=== PATIENT | female | born 1940 | race Caucasian/White ===

== ENCOUNTER 2017-10-24 09:01 | Outpatient (CLI) | payer MEDICARE ==
[2017-10-24 19:00] LABS: CHOL/HDL RATIO 3.4 (<4.4); CHOLESTEROL 242 mg/dL; HDL CHOLESTEROL 72 mg/dL; LDL CHOLESTEROL,CALCULATED 156 mg/dL; LDL/HDL RATIO 2.2 (<4.4); VLDL CHOLESTEROL 14 mg/dL
== END 2017-10-24 09:02 | disposition home or self-care (01) ==
LOC: LAB.F 09:01
PROVIDERS: ATTEND Nurse Practitioner Family
DX: E78.5 Hyperlipidemia, unspecified (principal)
CPT/HCPCS: 80061; 83721

== ENCOUNTER 2018-04-24 10:04 | Outpatient (CLI) | payer MEDICARE ==
--- NOTE | 2018-04-24 13:16 | DEXA Report ---
Procedure Date: 04/24/2018 Accession Number: [id number] / [id number] Procedure: DEX - Dexa Spine and/or Hip CPT Code: FULL RESULT: EXAM: Dexa Spine and/or Hip DATE: 04/24/2018 10:38 AM CLINICAL HISTORY: ENC FOR SCREENING FOR OSTEOPOROSIS TECHNIQUE: Dual energy x-ray absorptiometry (DXA) was performed on a Light Chaser Animation System. Regions measured are the AP Spine, femoral neck, and if needed forearm. COMPARISON: None. In accordance with the International Society for Clinical Densitometry (ISCD) guidelines, data from previous exams may be reanalyzed using current recommendations and techniques. This is done to allow a more accurate basis for comparison with the current study. FINDINGS: The data for the lumbar spine is as follows: BMD (g/cm/cm) T-SCORE Z-SCORE REGION L1 0.758 -3.1 -1.1 L2 0.782 -3.5 -1.5 L3 0.849 -2.9 -0.9 L4 0.906 -2.4 -0.5 TOTAL 0.834 -2.9 -0.9 NOTE: All evaluable vertebrae are used for classification The data for the hip is as follows: BMD (g/cm/cm) T-SCORE Z-SCORE REGION Neck 0.740 -2.1 0.1 TOTAL 0.821 -1.5 0.6 IMPRESSION: THE WHO CLASSIFICATION BASED ON THE INTERNATIONAL REFERENCE STANDARD IS OSTEOPOROSIS. THE FRACTURE RISK IS HIGH. RECOMMENDATION: Patients with diagnosis of osteoporosis or osteopenia should have regular bone mineral density assessment. For those eligible for Medicare, routine testing is allowed once every 2 years. Testing frequency can be increased for patients who have rapidly progressing disease or for those who are receiving medical therapy to restore bone mass. COMMENT: World Health Organization (WHO) definitions for osteoporosis and osteopenia: NORMAL BMD: T-score at -1.0 or higher, fracture risk is low OSTEOPENIA BMD: T-score between -1.0 and -2.5, fracture risk is increased. OSTEOPOROSIS BMD: T-score at -2.5 or lower, fracture risk is high. National Osteoporosis Foundation recommends: 1. Obtain adequate dietary calcium (at least 1200 mg per day) and vitamin D (400-800 international units per day). 2. Participate, as appropriate, in regular weightbearing and muscle-strengthening exercise. 3. Avoid tobacco use and reduce alcohol and caffeine intake. 4. For more detailed information see the website at www.NOF.org.
== END 2018-04-24 10:05 | disposition home or self-care (01) ==
LOC: DI 10:04
PROVIDERS: ATTEND Physician Assistant Medical
DX: M81.8 Other osteoporosis without current pathological fracture (principal); M85.88 Other specified disorders of bone density and structure, other site
CPT/HCPCS: 77080

== ENCOUNTER 2018-06-21 08:39 | Outpatient (CLI) | payer MEDICARE ==
[2018-06-21 11:25] LABS: ALBUMIN 3.6 g/dL (3.2-5.5); ALBUMIN/GLOBULIN RATIO 1.3 (1.0-2.2); ALKALINE PHOSPHATASE 80 IU/L (42-121); ALT ALANINE AMINOTRANSFERASE 21 IU/L (10-60); AST ASPARTATE AMINOTRANSFERASE 32 IU/L (10-42); BILIRUBIN,TOTAL 0.9 mg/dL (0.2-1.0); BUN - BLOOD UREA NITROGEN 10 mg/dL (6-20); CALCIUM 8.9 mg/dL (8.5-10.3); CARBON DIOXIDE - CO2 28 mmol/L (21-32); CHLORIDE 104 mmol/L (101-111); CHOL/HDL RATIO 2.9 (<4.4); CHOLESTEROL 227 mg/dL; CREATININE 0.7 mg/dL (0.4-1.0); GFR - MDRD 81 (>89); GLUCOSE 94 mg/dL (70-100); HDL CHOLESTEROL 78 mg/dL; LDL CHOLESTEROL,CALCULATED 136 mg/dL; LDL/HDL RATIO 1.7 (<4.4); SODIUM 139 mmol/L (135-145); TOTAL PROTEIN 6.4 g/dL (6.7-8.2); VLDL CHOLESTEROL 13 mg/dL
== END 2018-06-21 08:40 | disposition home or self-care (01) ==
LOC: LAB.F 08:39
PROVIDERS: ATTEND Physician Assistant Medical
DX: E78.5 Hyperlipidemia, unspecified (principal)
CPT/HCPCS: 36415; 80053; 80061; 83721

== ENCOUNTER 2019-03-19 08:24 | Outpatient (CLI) | payer MEDICARE ==
[2019-03-19 10:17] LABS: BASOPHILS # (AUTO) 0.1 10^3/uL (0.0-0.1); BASOPHILS % (AUTO) 1.5 %; EOSINOPHILS # (AUTO) 0.5 10^3/uL (0.0-0.7); EOSINOPHILS % (AUTO) 8.9 %; HGB - HEMOGLOBIN 13.4 g/dL (12.0-16.0); LYMPHOCYTES # (AUTO) 2.1 10^3/uL (1.5-3.5); LYMPHOCYTES % (AUTO) 35.7 %; MEAN CORPUSCULAR HEMOGLOBIN 30.5 pg (27.0-31.0); MEAN CORPUSCULAR HGB CONC 32.7 g/dL (32.0-36.0); MEAN CORPUSCULAR VOLUME 93.2 fL (81.0-99.0); MEAN PLATELET VOLUME 10.2 fL (7.9-10.8); MONOCYTES # (AUTO) 0.6 10^3/uL (0.0-1.0); MONOCYTES % (AUTO) 9.9 %; NEUTROPHILS # (AUTO) 2.6 10^3/uL (1.5-6.6); NEUTROPHILS % (AUTO) 43.7 %; PLT - PLATELET COUNT 239 10^3/uL (130-450); RED CELL DISTRIBUTION WIDTH 13.2 % (12.0-15.0); WHITE BLOOD COUNT 5.9 x10^3/uL (4.8-10.8)
[2019-03-19 10:34] LABS: CHOL/HDL RATIO 3.5 (<4.4); CHOLESTEROL 241 mg/dL; HDL CHOLESTEROL 68 mg/dL; LDL CHOLESTEROL,CALCULATED 156 mg/dL; LDL/HDL RATIO 2.3 (<4.4); VLDL CHOLESTEROL 17 mg/dL
== END 2019-03-19 08:25 | disposition home or self-care (01) ==
LOC: LAB.S 08:24
PROVIDERS: ATTEND Physician Assistant Medical
DX: E78.5 Hyperlipidemia, unspecified (principal); Z51.81 Encounter for therapeutic drug level monitoring; Z79.899 Other long term (current) drug therapy
CPT/HCPCS: 36415; 80061; 83721; 85025

== ENCOUNTER 2019-06-09 00:24 | Outpatient (CLI) | payer MEDICARE | END 2019-06-09 00:25 | disposition critical access hospital (66) | LOC: EMS 00:24 | PROVIDERS: ATTEND Surgery | DX: R10.31 Right lower quadrant pain (principal); R11.2 Nausea with vomiting, unspecified | CPT/HCPCS: A0425; A0429 ==

== ENCOUNTER 2019-06-09 00:45 | Inpatient (IN) | payer MEDICARE ==
[2019-06-09] MEDS ORDERED: MORPHINE 10 MG/ML VIAL IVP STA (00:54)
[2019-06-09] MEDS ORDERED: ONDANSETRON 4 MG/2 ML VIAL IVP STA (00:54)
[2019-06-09 01:10] LABS: BASOPHILS # (AUTO) 0.1 10^3/uL (0.0-0.1); BASOPHILS % (AUTO) 1.4 %; EOSINOPHILS # (AUTO) 0.7 10^3/uL (0.0-0.7); EOSINOPHILS % (AUTO) 6.4 %; HGB - HEMOGLOBIN 13.1 g/dL (12.0-16.0); LYMPHOCYTES # (AUTO) 2.6 10^3/uL (1.5-3.5); LYMPHOCYTES % (AUTO) 25.4 %; MEAN CORPUSCULAR HEMOGLOBIN 30.9 pg (27.0-31.0); MEAN CORPUSCULAR HGB CONC 33.8 g/dL (32.0-36.0); MEAN CORPUSCULAR VOLUME 91.5 fL (81.0-99.0); MEAN PLATELET VOLUME 9.6 fL (7.9-10.8); MONOCYTES # (AUTO) 0.7 10^3/uL (0.0-1.0); NEUTROPHILS # (AUTO) 6.1 10^3/uL (1.5-6.6); NEUTROPHILS % (AUTO) 59.3 %; PLT - PLATELET COUNT 262 10^3/uL (130-450); RED BLOOD COUNT 4.24 10^6/uL (4.20-5.40); RED CELL DISTRIBUTION WIDTH 13.7 % (12.0-15.0); WHITE BLOOD COUNT 10.3 x10^3/uL (4.8-10.8)
[2019-06-09] MEDS ORDERED: IOVERSOL 320 100 ML VIAL IVP ONE ×2 (01:20→01:47)
[2019-06-09 01:22] LABS: ALBUMIN/GLOBULIN RATIO 1.3 (1.0-2.2); BILIRUBIN,TOTAL 0.7 mg/dL (0.2-1.0); CALCIUM 9.5 mg/dL (8.5-10.3); CREATININE 0.8 mg/dL (0.4-1.0); TOTAL PROTEIN 7.2 g/dL (6.7-8.2)
--- NOTE | 2019-06-09 01:22 | ED Physician Documentation ---
PD HPI ABD PAIN - Stated complaint Stated Complaint: ABD PAIN - Chief complaint Chief Complaint: Abd Pain - History obtained from History obtained from: Patient - History of Present Illness Timing - onset: How many hours ago (6) Timing - duration: Hours (6) Timing - details: Abrupt onset Pain level max: 8 Pain level now: 6 Quality: Aching, Sharp, Pain Location: RLQ Radiation: No: Chest, , Lower back, Left flank, Left shoulder, Right flank, Right shoulder, Upper back Improved by: Laying still Worsened by: Moving, Palpation Associated symptoms: Nausea, Vomiting, Diarrhea. No: Fever, Hematemesis, Constipation, Melena, Hematochezia, Dysuria, Hematuria Similar symptoms before: Has not had sx before Recently seen: Not recently seen Review of Systems Ten Systems: 10 systems reviewed and negative Constitutional: denies: Fever, Chills Respiratory: denies: Cough : denies: Dysuria, Frequency, Hesitancy, Incontinent Skin: denies: Rash Musculoskeletal: denies: Neck pain, Back pain Neurologic: denies: Headache PD PAST MEDICAL HISTORY - Past Medical History Past Medical History: No Cardiovascular: None Respiratory: None Neuro: None Endocrine/Autoimmune: None GI: None RELAY DISPATCHER: None : None HEENT: None Psych: None Musculoskeletal: None Derm: None - Past Surgical History Past Surgical History: Yes General: Other HEENT: Tonsil/Adenoidectomy - Allergies Allergies/Adverse Reactions: Allergies Allergy/AdvReac Type Severity Reaction Status Date / Time No Known Drug Allergies Allergy Verified 06/09/19 00:54 - Social History Does the pt smoke?: No Smoking Status: Never smoker Does the pt drink ETOH?: No Does the pt have substance abuse?: No - Immunizations Immunizations are current?: Yes - POLST Patient has POLST: No PD ED PE NORMAL - Vitals Vital signs reviewed: Yes - General General: Alert and oriented X 3, No acute distress, Well developed/nourished - HEENT HEENT: PERRL, Moist mucous membranes - Neck Neck: Supple, no meningeal sign - Cardiac Cardiac: RRR, Strong equal pulses - Respiratory Respiratory: No respiratory distress, Clear bilaterally - Abdomen Abdomen: Soft, Non distended, Other (Tender to palpation right lower quadrant near McBurney's point. No peritoneal signs.) - Back Back: No CVA TTP, No spinal TTP - Derm Derm: Warm and dry - Extremities Extremities: No edema - Neuro Neuro: Alert and oriented X 3 - Psych Psych: Normal mood, Normal affect Results - Vitals Vitals: Vital Signs - 24 hr 06/09/19 06/09/19 06/09/19 00:52 01:13 02:08 Temperature 36.6 C Heart Rate 86 66 67 Respiratory 19 17 16 Rate Blood Pressure 114/89 H 143/71 H 141/68 H O2 Saturation 98 98 96 06/09/19 02:36 Temperature 36.3 C L Heart Rate 74 Respiratory 16 Rate Blood Pressure 126/65 O2 Saturation 95 Oxygen O2 Source Room air - Labs Labs: Laboratory Tests 06/09/19 06/09/19 00:40 00:40 WBC 10.3 RBC 4.24 Hgb 13.1 Hct 38.8 MCV 91.5 MCH 30.9 MCHC 33.8 RDW 13.7 Plt Count 262 MPV 9.6 Neut # (Auto) 6.1 Lymph # (Auto) 2.6 Sutter # (Auto) 0.7 Eos # (Auto) 0.7 Baso # (Auto) 0.1 Absolute Nucleated RBC 0.00 Nucleated RBC % 0.0 Sodium 140 Potassium 3.9 Chloride 102 Carbon Dioxide 28 Anion Gap 10.0 BUN 13 Creatinine 0.8 Estimated GFR (MDRD) 69 L Glucose 136 H Calcium 9.5 Total Bilirubin 0.7 AST 31 ALT 20 Alkaline Phosphatase 87 Total Protein 7.2 Albumin 4.0 Globulin 3.2 Albumin/Globulin Ratio 1.3 Lipase 29 - Rads (name of study) CT abd/pelvis Radiology: Prelim report reviewed, EMP read contemporaneously, See rad report (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 Ileum proximal to this appears fluid- filled and mildly distended and this could reflect an early/partial small bowel obstruction. No mesenteric edema or wall thickening to suggest bowel compromise. 2. Left breast posterior nearly 2 cm irregular asymmetric nodule. Breast cancer needs be excluded with dedicated workup at a breast center. 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 Discussed the case with Dr. Berger, general surgeon who will consult in the morning. Discussed the case with Dr. Chiang, hospitalist who accepts. Pain well controlled. No vomiting. Nausea improved. IV fluids given. Patient was also counseled regarding the breast mass on CT scan and the need for follow-up This document was made in part using voice recognition software. While efforts are made to proofread this document, sound alike and grammatical errors may occur. Departure - Departure Disposition: ED Place in Observation Clinical Impression: Small bowel obstruction, Cecal volvulus, Left breast mass Condition: Stable
[2019-06-09] MEDS ORDERED: SODIUM CHLORIDE 0.9% 1,000 ML IV ONE (02:13)
--- NOTE | 2019-06-09 02:30 | CT Report ---
Reason: RLQ pain, vomiting Procedure Date: 06/09/2019 Accession Number: [id number] / [id number] Procedure: CT - Abdomen/Pelvis W CPT Code: FULL RESULT: EXAM: CT ABDOMEN AND PELVIS EXAM DATE: 06/09/2019 01:46 AM. CLINICAL HISTORY: Right lower quadrant pain, vomiting. COMPARISONS: None. TECHNIQUE: Routine helical CT imaging was performed through the abdomen and pelvis. IV contrast: Yes . Enteric contrast: No . Reconstructions: Coronal and sagittal. In accordance with CT protocol optimization, one or more of the following dose reduction techniques were utilized for this exam: automated exposure control, adjustment of mA and/or KV based on patient size, or use of iterative reconstructive technique. FINDINGS: Lung Bases: Unremarkable. Liver: Small right liver cyst or hemangioma. No suspicious masses. Gallbladder/Bile Ducts: Unremarkable. Spleen: Unremarkable. Pancreas: Unremarkable. Adrenal Glands: Unremarkable. Kidneys: Left renal cyst. No suspicious masses or hydronephrosis. Peritoneal Cavity/Bowel: Stool-filled moderately distended cecum is flipped up pointing cranially in the right upper quadrant. Best seen on coronal images 17 through 22, there is a slight twisting of the distal/terminal ileum a few centimeters proximal to the cecum. The ileum proximal to this is mildly distended with fluid. No bowel thickening or mesenteric edema. Pelvic Organs: Bladder, uterus, and adnexa appear unremarkable. Vasculature: No aneurysms or other significant abnormality. Bones: No significant abnormality. Other: At the posterior aspect of the left breast below the nipple line, there is an regular asymmetric density, measuring approximately 19 x 13 mm on axial image 10, 17 mm deep to the skin surface at about 7 o'clock. IMPRESSION: 1. 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 Ileum proximal to this appears fluid-filled and mildly distended and this could reflect an early/partial small bowel obstruction. No mesenteric edema or wall thickening to suggest bowel compromise. 2. Left breast posterior nearly 2 cm irregular asymmetric nodule. Breast cancer needs be excluded with dedicated workup at a breast center. [facility] The call report notification system was initiated by Dr. Ruslan Ramos at 02:24 AM on 06/09/2019. The above call report findings were discussed with Eliseo Mckenzie by Dr. Ruslan Ramos at 02:28 AM on 06/09/2019.
[2019-06-09] MEDS ORDERED: MORPHINE 2 MG/ML CARPUJECT IVP PRN (02:46)
[2019-06-09] MEDS ORDERED: ONDANSETRON 4 MG/2 ML VIAL IVP PRN (02:46)
[2019-06-09] MEDS ORDERED: SODIUM CHLORIDE FLUSH 0.9% 10 ML SYRINGE IVP PRN (02:46)
[2019-06-09] MEDS ORDERED: ACETAMINOPHEN 325 MG TABLET PO PRN (02:46)
[2019-06-09] MEDS ORDERED: LACTATED RINGERS 1,000 ML IV SCH (03:00)
--- NOTE | 2019-06-09 03:12 | HISTORY & PHYSICAL EXAMINATION ---
Chief Complaint - Chief Complaint Chief Complaint: Abdominal pain History of Present Illness - Admitted From Admitted From:: Home - History Obtained From Records Reviewed: Yes History obtained from: Patient, ER Physician - History of Present Illness HPI Comment/Other: This is a 78 year old female with no significant past medical history who presents this morning from complaining of abdominal pain that began after dinner last night. She reports doing well up until that time. She developed pain in her right lower quadrant and she was concerned she may have appendicitis. She measured her temperature which was normal. She felt nauseous and had one episode of emesis. She reports she is not passing gas. She denies fevers, dyspnea, chest pain. She does report chills that began on her way to the ER. She reports no prior abdominal surgeries and no history of obstruction in the past. She has never had a colonoscopy. In the ER, she was hemodynamically stable. Her labs were unremarkable. A CT of the abdomen/pelvis was performed which was concerning for a cecal volvulus and early small bowel obstruction. She received IV Morphine with improvement in her pain. She will be admitted for further management. History - Past Medical History Cardiovascular: reports: None Respiratory: reports: None Neuro: reports: None Endocrine/Autoimmune: reports: None GI: reports: None CEMENTER HAND: reports: None : reports: None HEENT: reports: None Psych: reports: None Musculoskeletal: reports: None Derm: reports: None MRSA Hx?: No - Past Surgical History General: reports: Other (Cataractws) HEENT: reports: Tonsil/Adenoidectomy - Family & Social History Family History Comment/Other: Her mother from heart failure. Her father had prostate cancer. Living arrangement: At home Social History Notes: She lives on [address] with her spouse. She does not smoke. Drinks a glass of wine at times. - Substance History Use: Uses substance without health or social issues: NONE - POLST Patient has POLST: No Meds/Allgy - Allergies Allergies/Adverse Reactions: Allergies Allergy/AdvReac Type Severity Reaction Status Date / Time No Known Drug Allergies Allergy Verified 06/09/19 00:54 Review of Systems - Constitutional Constitutional: reports: Chills. denies: Fatigue, Fever, Poor appetite - Cardiovascular Cariovascular: denies: Chest pain, Exertional dyspnea, Decr. exercise tolerance - Respiratory Respiratory: denies: Cough, SOB at rest, SOB with exertion - Gastrointestinal Gastrointestinal: reports: Abdominal pain, Change in bowel habits, Nausea, Vomiting. denies: Abdominal distention, Diarrhea, Black stools, Bloody stools - Genitourinary Genitourinary: denies: Dysuria, Frequency, Urgency - Musculoskeletal Musculoskeletal: denies: Muscle weakness - Integumentary Integumentary: denies: Rash - Neurological Neurological: denies: General weakness, Focal weakness - All Other Systems All Other Systems: reports: Reviewed and negative Prior Level of Functionality: Independent with ADL's. Exam - Vital Signs Reviewed Vital Signs: Yes Vital Signs: Vital Signs x48h Temp Pulse Resp BP Pulse Ox 06/09/19 02:36 36.3 C L 74 16 126/65 95 06/09/19 02:08 67 16 141/68 H 96 06/09/19 01:13 66 17 143/71 H 98 06/09/19 00:52 36.6 C 86 19 114/89 H 98 - Physical Exam General Appearance: positive: No acute distress, Alert Eyes Bilateral: positive: Normal inspection ENT: positive: ENT inspection nml Neck: positive: Nml inspection Respiratory: positive: No respiratory distress, Breath sounds nml. negative: Wheezes, Rales, Rhonchi Cardiovascular: positive: Regular rate & rhythm, No murmur. negative: Tachycardia, Bradycardia, Systolic murmur, Diastolic murmur Abdomen: positive: Tenderness (Right lower quadrant), Abnml bowel sounds (Hyperactive). negative: Non-tender, Guarding, Rebound Skin: positive: Color nml, No rash, Warm, Dry Extremities: positive: Non-tender, Full ROM, No pedal edema Neurologic/Psychiatric: positive: Oriented x3, Motor nml. negative: Disoriented to person, Disoriented to place, Disoriented to time Conclusion/Plan - Problem List (1) Cecal volvulus Conclusion/Plan: Evident on CT of the abdomen/pelvis. Presented with right lower quadrant pain along with nausea/vomiting. Denies nausea/vomiting at this time. - Morphine IV PRN - IV hydration - Zofran PRN - NPO - Check lactic - General Surgery consult for potential surgical intervention (2) Small bowel obstruction Conclusion/Plan: Secondary to cecal volvulus. Presented with abdominal pain, nausea, vomiting. No prior history of obstruction. - Morphine PRN - NPO - Hold off on NG tube placement unless she has further episodes of emesis or nausea - General Surgery consult (3) Left breast mass Conclusion/Plan: Evident on CT of the abdomen/pelvis. Reports negative mammograms in the past. Last one being about 5 years ago. 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 General Surgery consult. - DVT/VTE - Prophylaxis VTE/DVT Device ordered at admit?: Yes VTE/DVT Prophylaxis med ordered at admit?: Yes
[2019-06-09 03:38] LABS: BILIRUBIN,URINE NEGATIVE (NEGATIVE); CLARITY,URINE CLEAR (CLEAR); GLUCOSE, URINE (UA) NEGATIVE (NEGATIVE); KETONES,URINE (UA) NEGATIVE (NEGATIVE); LEUKOCYTE ESTERASE, URINE TRACE (NEGATIVE); NITRITE,URINE NEGATIVE (NEGATIVE); OCCULT BLOOD,URINE NEGATIVE (NEGATIVE); PH,URINE 8.5 PH (5.0-7.5); PROTEIN,URINE NEGATIVE (NEGATIVE); UROBILINOGEN,URINE 0.2 (NORMAL) E.U./dL (NORMAL)
[2019-06-09 03:47] LABS: BACTERIA,URINE Rare /HPF (None Seen); RBC,URINE None Seen /HPF (0-5); SQUAMOUS EPITHELIAL CELL,UR MOD Squamous (<= Few)
[2019-06-09 05:37] LABS: BASOPHILS # (AUTO) 0.1 10^3/uL (0.0-0.1); EOSINOPHILS # (AUTO) 0.1 10^3/uL (0.0-0.7); EOSINOPHILS % (AUTO) 0.8 %; HGB - HEMOGLOBIN 12.1 g/dL (12.0-16.0); LYMPHOCYTES # (AUTO) 1.4 10^3/uL (1.5-3.5); LYMPHOCYTES % (AUTO) 16.8 %; MEAN CORPUSCULAR HGB CONC 32.4 g/dL (32.0-36.0); MEAN CORPUSCULAR VOLUME 92.6 fL (81.0-99.0); MEAN PLATELET VOLUME 9.7 fL (7.9-10.8); MONOCYTES # (AUTO) 0.4 10^3/uL (0.0-1.0); MONOCYTES % (AUTO) 5.1 %; NEUTROPHILS # (AUTO) 6.3 10^3/uL (1.5-6.6); NEUTROPHILS % (AUTO) 75.9 %; PLT - PLATELET COUNT 226 10^3/uL (130-450); RED BLOOD COUNT 4.03 10^6/uL (4.20-5.40); RED CELL DISTRIBUTION WIDTH 13.8 % (12.0-15.0); WHITE BLOOD COUNT 8.3 x10^3/uL (4.8-10.8)
[2019-06-09 05:51] LABS: CALCIUM 8.9 mg/dL (8.5-10.3); CREATININE 0.7 mg/dL (0.4-1.0); MAGNESIUM 2.3 mg/dL (1.7-2.8); PHOSPHORUS 4.7 mg/dL (2.5-4.6)
[2019-06-09] MEDS ORDERED: SODIUM CHLORIDE FLUSH 0.9% 10 ML SYRINGE IVP SCH (09:00)
[2019-06-09] MEDS: HEPARIN 5,000 UNIT/ML VIAL SUBQ SCH ×2 (09:11→09:14)
--- NOTE | 2019-06-09 10:23 | XRAY Report ---
Reason: partial SBO Procedure Date: 06/09/2019 Accession Number: [id number] / [id number] Procedure: XR - Abdomen 2 View X-Ray CPT Code: 21569 FULL RESULT: EXAM: ABDOMEN RADIOGRAPHY EXAM DATE: 06/09/2019 09:52 AM HISTORY: Partial SBO. COMPARISON: ABDOMEN/PELVIS W/ 06/09/2019 1:37 AM TECHNIQUE: AP and Upright two view exam. FINDINGS: Nonspecific bowel gas pattern noted. No definite significant abnormal distention of bowel loops. There is only mild prominence of gas in small bowel loops. No air-fluid levels. Small amt of stool and gas in the colon. No free air No concerning calcification. Residual contrast seen in the urinary bladder. Unremarkable skeleton. Other: None. IMPRESSION: Mildly prominent gas in small bowel loops but within normal limits. No clear evidence of obstructive pattern or other significant abnormality.
--- NOTE | 2019-06-09 13:22 | Discharge Plan ---
Discharge Plan Problem Reviewed?: Yes Disposition: Home, Self Care Condition: Stable Diet: Soft Activity Restrictions: Activity as Tolerated Shower Restrictions: No (fall precaution) Health Concerns: Cecal volvulus, and left breast mass Plan of Treatment: your abdominal pain was resolved, you tolerate the diet, you have no more nausea, vomiting, you passed gas. you reported you had bowel movement on last night before admission. Your Xray of abdomen was unremarkable now. For your cecal volvulus, please followup surgeon Dr. Sharma in one to two weeks as out-pt. For your left breast mass as shown in the CT of abdomen, please followup OBGN in one to two weeks as out-pt. Care Goals: stabilization and improvement of your medical condition Assessment: assessment as the above. Additional Instructions or Follow Up instructions: you may followup your PCP in one week, followup surgeon Dr. Mares and OBGN in one to two weeks as out-pt. Should your symptoms return or worsen, you may present ER or call 911 for help. No Smoking: If you smoke, Please STOP! Call for help. Follow-up with: Corie Martin PA-C [Primary Care Provider] -
--- NOTE | 2019-06-09 13:37 | DISCHARGE SUMMARY ---
"Discharge Summary Discharge Date: 06/09/19 Discharging Provider: MUNOZ Primary Care Provider: Dr. Corie Martin Condition at Discharge: Stable Discharge Disposition: 01 Home, Self Care Discharge Facility Name: home - DIAGNOSES Admission Diagnoses: (1) Cecal volvulus (2) Small bowel obstruction (3) Left breast mass Discharge Diagnoses with Status of Each Condition: (1) Cecal volvulus resolved. pt has no more abdominal pain, pt tolerate diet, pt passed gas. pt report she had a bowel movement just before the night she was admitted. Xray of abdomen reveals no clear evidence of obstructive patterns or other significant abnormality. (2) Small bowel obstruction resolved as above (3) Left breast mass stable. pt report she had this cyst for many years. - HPI History of Present Illness: refer from Dr. Chiang's HPI on 06/09/19 This is a 78 year old female with no significant past medical history who presents this morning from complaining of abdominal pain that began after dinner last night. She reports doing well up until that time. She developed pain in her right lower quadrant and she was concerned she may have appendicitis. She measured her temperature which was normal. She felt nauseous and had one episode of emesis. She reports she is not passing gas. She denies fevers, dyspnea, chest pain. She does report chills that began on her way to the ER. She reports no prior abdominal surgeries and no history of obstruction in the past. She has never had a colonoscopy. In the ER, she was hemodynamically stable. Her labs were unremarkable. A CT of the abdomen/pelvis was performed which was concerning for a cecal volvulus and early small bowel obstruction. She received IV Morphine with improvement in her pain. She will be admitted for further management. - CONSULTS | PROCEDURES Consultations: Dr. Sharma Procedures: no procedure needed - HOSPITAL COURSE Hospital Course: pt was admitted for abdominal pain. pt was found in CT of abdomen concerning for a cecal volvulus and early small bowel obstruction. After NPO, ambulation, pt has no more abdominal pain, pt tolerate the diet, and pt passed gas. pt had a bowel movement just before she was admitted in the night. Xray of abdomen reveals no clear evidence of obstructive patterns or other significant abn ormality. Surgeon was consulted but he requested d/c consult because he stated pt was improved. Dr. Sharma asked pt followup him in one to two weeks to discuss possible surgery as out-pt. The message was given to pt. pt report she had left breast cyst for many years, she knew this condition. The detail hospital course as the below: 1) Cecal volvulus resolved. pt has no more abdominal pain, pt tolerate diet, pt passed gas. pt report she had a bowel movement just before the night she was admitted. Xray of abdomen reveals no clear evidence of obstructive patterns or other significant abnormality. (2) Small bowel obstruction resolved as above (3) Left breast mass stable. pt report she had this cyst for many years. - ALLERGIES Allergies/Adverse Reactions: Allergies Allergy/AdvReac Type Severity Reaction Status Date / Time No Known Drug Allergies Allergy Verified 06/09/19 00:54 - MEDICATIONS Home Medications: Ambulatory Orders Medication Instructions Recorded Confirmed Cholecalciferol [Vitamin D3] 5,000 unit PO DAILY 06/09/19 06/09/19 Lactobacillus Acidophilus 1 each PO DAILY 06/09/19 06/09/19 [Probiotic Acidophilus] Multivitamin [Multiple Vitamins] 1 each PO DAILY 06/09/19 06/09/19 - PHYSICAL EXAM AT DISCHARGE General Appearance: positive: No acute distress, Alert. negative: Lethargic Eyes Bilateral: positive: Normal inspection, PERRL, No lid inflammation, Conjunctivae nml ENT: positive: ENT inspection nml, Pharynx nml, No signs of dehydration. negative: Purulent nasal drainage, Pharyngeal erythema, Oral lesions Neck: positive: Nml inspection, Thyroid nml, No JVD, Trachea midline. negative: Thyromegaly, Lymphadenopathy (R), Lymphadenopathy (L), Stiff neck, Swelling/bruising, Tracheal deviation Respiratory: positive: Chest non-tender, No respiratory distress, Breath sounds nml. negative: Wheezes, Rales, Rhonchi Cardiovascular: positive: Regular rate & rhythm, No murmur, No gallop. negative: Irregularly irregular, Extrasystoles, Tachycardia, Bradycardia, JVD present, Systolic murmur, Diastolic murmur Peripheral Pulses: positive: 2+ Abdomen: positive: Non-tender, No organomegaly, Nml bowel sounds, No distention. negative: Tenderness, Guarding, Rebound Back: positive: Nml inspection. negative: CVA tenderness (R), CVA tenderness (L) Skin: positive: Color nml, No rash, Warm, Dry. negative: Cyanosis, Diaphoresis, Pallor Extremities: positive: Non-tender, Full ROM, Nml appearance. negative: Calf tenderness, Joint swelling, Gerardo's sign/cords Neurologic/Psychiatric: positive: Oriented x3, Motor nml, Sensation nml, Mood/affect nml. negative: Weakness, Sensory loss, Facial droop, Slurred/abnml speech, Depressed mood/affect - LABS Result Diagrams: 06/09/19 05:30 06/09/19 05:30 - FOLLOW UP Follow Up: your abdominal pain was resolved, you tolerate the diet, you have no more nausea, vomiting, you passed gas. you reported you had bowel movement on last night before admission. Your Xray of abdomen was unremarkable now. For your cecal volvulus, please followup surgeon Dr. Sharma in one to two weeks as out-pt. For your left breast mass as shown in the CT of abdomen, please followup OBGN in one to two weeks as out-pt. you may followup your PCP in one week, followup surgeon Dr. Mares and OBGN in one to two weeks as out-pt. Should your symptoms return or worsen, you may present ER or call 911 for help. - TIME SPENT Time Spent in Discharge (Minutes): 55"
[2019-06-09 14:05] VITALS: BP 127/61
== END 2019-06-09 14:18 | disposition home or self-care (01) | DRG 390 ==
LOC: EDUNIT# → ED 00:45 → OBSVTOIN 02:46 → MS2 02:46
PROVIDERS: ADMIT Internal Medicine; ATTEND Nurse Practitioner Gerontology
DX: K56.2 Volvulus (principal); K56.600 Partial intestinal obstruction, unspecified as to cause; N63.0 Unspecified lump in unspecified breast
CPT/HCPCS: 36415; 74019; 74177; 80048; 80053; 81001; 83605; 83690; 83735; 84100; 85025; 96374; 99285; J7120; Q9967; 81003; 87086

== ENCOUNTER 2019-07-11 13:31 | Outpatient (CLI) | payer MEDICARE ==
--- NOTE | 2019-07-11 15:39 | Mammography Report ---
Reason: LT BREAST MASS FOUND ON CT Procedure Date: 07/11/2019 Accession Number: [id number] / [id number] Procedure: DALLIN - Diagnostic Dig Bilat CPT Code: FULL RESULT: EXAM: Diagnostic Dig Bilat, Breast Unilateral Limited DATE: 07/11/2019 2:46 PM CLINICAL HISTORY: CT scan abdomen and pelvis 06/09/2019 demonstrated left breast mass. COMPARISON: CT scan abdomen and pelvis 06/09/2019 TECHNIQUE: (B) - Bilateral CC and MLO views were obtained. PARENCHYMAL PATTERN: (A) - The breasts demonstrate scattered fibroglandular densities bilaterally. FINDINGS: Right breast: There are no suspicious masses, calcifications, or areas of distortion. Left breast: There is a posterior left breast mass 6:00 position 7 cm from the nipple. LEFT BREAST ULTRASOUND: TECHNIQUE: Real-time scanning by the timekeeper supervisor with saved static images reviewed. FINDINGS: Corresponding to the mammographic abnormality is a 1.6 x 1 x 2.1 cm ill-defined hypoechoic minimally vascular mass against the chest wall 6:00 position, approximately 4 cm from the nipple. IMPRESSION: Highly suggestive for malignancy. BI-RADS category 5. Ultrasound-guided core biopsy left breast mass is suggested. Negative right breast. RECOMMENDATION: (BIOPSY) - ultrasound core biopsy left breast. BI-RADS CATEGORY: (5) - Highly suggestive for malignancy. Results called to Corie Martin 3:30 PM 07/11/2019. STANDARD QUALIFYING STATEMENTS: This examination was not reviewed with the aid of Computer-Aided Detection (CAD). 2. A negative or benign imaging report should not preclude biopsy if clinically suspicious findings are present. 3. Dense breasts may obscure an underlying neoplasm. 4. This examination was reviewed with the aid of 3D breast imaging (tomosynthesis).
== END 2019-07-11 13:32 | disposition home or self-care (01) ==
LOC: DI 13:31
PROVIDERS: ATTEND Physician Assistant Medical
DX: N63.25 Unspecified lump in the left breast, overlapping quadrants (principal)
CPT/HCPCS: 76642; 77066

== ENCOUNTER 2019-07-19 08:39 | Day surgery (SDC) | payer MEDICARE ==
[2019-07-19] MEDS ORDERED: fentaNYL 250 MCG/5 ML VIAL IVP ONE (08:40)
[2019-07-19] MEDS ORDERED: MIDAZOLAM 2 MG/2 ML VIAL IVP ONE (08:40)
[2019-07-19] MEDS ORDERED: LACTATED RINGERS 1,000 ML IV ONE (08:50)
[2019-07-19 11:54] VITALS: BP 109/72
== END 2019-07-19 08:40 | disposition home or self-care (01) ==
LOC: SDS 08:39
PROVIDERS: ATTEND Surgery
PROC: 0DBN8ZZ Excision of Sigmoid Colon, Via Natural or Artificial Opening Endoscopic (ICD-10-PCS; principal; 2019-07-19 10:00)
DX: D12.5 Benign neoplasm of sigmoid colon (principal); E78.5 Hyperlipidemia, unspecified
CPT/HCPCS: 45385; J3010; J7120

== ENCOUNTER 2019-07-24 08:19 | Outpatient (CLI) | payer MEDICARE ==
[2019-07-24] MEDS ORDERED: BUFFERED LIDOCAINE 10 ML SYRINGE ONE (11:01)
[2019-07-24] MEDS ORDERED: BUPIVACAINE 0.25%-EPI 1:200000 PF 30 ML VIAL SUBQ ONE (15:41)
[2019-07-24] MEDS ORDERED: BUFFERED LIDOCAINE 10 ML SYRINGE IU ONE (15:41)
--- NOTE | 2019-07-24 16:24 | Ultrasound Report ---
Reason: ABNORMAL MAMMO Procedure Date: 07/24/2019 Accession Number: [id number] / [id number] Procedure: US - Biopsy Breast Core CPT Code: Final Report FULL RESULT: PROCEDURE: Ultrasound-guided needle biopsy left breast mass. CLINICAL DATA: Targeted mass measuring 1.7 x 1.0 x 0.8 cm with irregular margins in the 6 o'clock axis of the left breast. Informed consent was obtained. Using standard aseptic technique, both 1% buffered lidocaine and Sensorcaine were injected into the left breast for local anesthesia. A small sherlyn was made in the skin with a #11 blade. A 12-gauge [employer] vacuum-assisted device was used to obtain 3 specimens. A specialized biopsy marker clip was placed into the biopsy cavity under ultrasound guidance. The patient was taken to separate mammography machine and a two-view digital mammography was performed to verify the clip placement and any complications. Immediate follow-up mammography images could not be obtained immediately following the biopsy due to technical reasons. The patient elected to return for post clip placement imaging with plan for this to be performed the same day. Ultrasound images document placement of the marker within the center of the lesion with permanent ultrasound image saved for the archive. The wound was dressed and ice applied. The patient was observed for approximately 15 minutes, then was discharged from diagnostic imaging Department in good condition following instructions on wound care and obtaining biopsy results. The patient is scheduled to receive the biopsy results from the referring physician. The tissue was sent for histologic analysis. IMPRESSION: Ultrasound-guided biopsy of the left breast. AN ADDENDUM WILL BE MADE TO THIS REPORT WHEN PATHOLOGY IS REVIEWED TO ESTABLISH CONCORDANCE.
== END 2019-07-24 08:20 | disposition home or self-care (01) ==
LOC: DI 08:19
PROVIDERS: ATTEND Physician Assistant Medical
DX: C50.912 Malignant neoplasm of unspecified site of left female breast (principal); Z17.0 Estrogen receptor positive status [ER+]
CPT/HCPCS: 19083

== ENCOUNTER 2019-08-08 12:17 | Outpatient (CLI) | payer MEDICARE ==
--- NOTE | 2019-08-08 15:30 | XRAY Report ---
Reason: HX OF COLONIC PALYPS, ADEMATOUS Procedure Date: 08/08/2019 Accession Number: [id number] / [id number] Procedure: FL - Barium Enema w/Air CPT Code: Final Report FULL RESULT: EXAM: BARIUM ENEMA EXAM DATE: 08/08/2019 02:56 PM. CLINICAL HISTORY: History of colonic polyps, edematous. COMPARISONS: ABDOMEN 2 VIEW 06/09/2019 9:45 AM. TECHNIQUE: Routine double contrast barium enema. Fluoroscopy Time: 1 minute 37 seconds. Number of Images: 126. FINDINGS: Study is somewhat limited by suboptimal emptying of the barium colon prior to double contrast distention. For the region of the cecum, the study is felt to be overall diagnostic for masses within the limitations inherent to the technique. Morphology: Normal distention and anatomy. Colon adequately visualized from the rectum to the cecum. Mucosa: Normal. No diverticula, masses, or strictures. No filling defects evident. Terminal Ileum: Mild ileocecal reflux present. No mucosal abnormalities evident. Other: None. IMPRESSION: No mass or fixed stricture is detected. RADIA
[2019-08-09] MEDS ORDERED: DIATR MEGLU/DIATRIZOATE SODIUM 120 ML BOTTLE PO ONE (08:08)
[2019-08-09] MEDS ORDERED: BARIUM SULFATE 1,900 ML BOTTLE RC ONE (08:08)
== END 2019-08-08 12:18 | disposition home or self-care (01) ==
LOC: DI 12:17
PROVIDERS: ATTEND Surgery
DX: Z86.010 Personal history of colon polyps (principal)
CPT/HCPCS: 74280

== ENCOUNTER 2019-09-18 14:10 | Outpatient (CLI) | payer MEDICARE ==
[2019-09-18] MEDS ORDERED: GADOBUTROL 7.5 MMOL/7.5 ML VIAL ONE (14:20)
[2019-09-18] MEDS ORDERED: GADOBUTROL 7.5 MMOL/7.5 ML VIAL IVP ONE (15:26)
--- NOTE | 2019-09-26 09:20 | MRI Report ---
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 Pretreatment MRI requested to assess for extent of disease. TECHNIQUE: BREAST COIL: COMPARISON: None FINDINGS: BACKGROUND TISSUE: Scattered fibroglandular tissue. BACKGROUND ENHANCEMENT: Minimal. RIGHT BREAST: There is no focus of mass or nonmass enhancement, distortion or skin thickening. There are no pathologically enlarged axillary or internal mammary lymph nodes. LEFT BREAST: The biopsy-proven malignant mass in the superficial 6:00 position is confirmed measuring approximately 16 x by 20 x 12 mm. There are features suspicious for direct invasion into the overlying dermis. There are no additional foci of mass or nonmass enhancement to suggest multifocal or multicentric disease. There are no pathologically enlarged axillary or internal mammary lymph nodes. IMPRESSION: RIGHT BREAST: No evidence for malignancy. (Negative. BiRads 1) LEFT BREAST: The biopsy proven malignancy in the 6:00 posterior position is confirmed measuring 2 cm in maximal dimension. Suspect direct invasion into the overlying dermis. No MR evidence for multifocal, multicentric or regional metastatic disease. (Known Malignancy. BiRads 6) COMMENT: The literature indicates that a negative and dynamic breast MRI has a high sensitivity and specificity for the detection of invasive carcinoma (to a threshold of 5 mm). MRI is not reliably sensitive for detecting ductal carcinoma in situ or large invasive neoplasms with only minimal enhancement (normal-appearing lymph nodes may contain microscopic tumor.
== END 2019-09-18 14:11 | disposition home or self-care (01) ==
LOC: DI 14:10
PROVIDERS: ATTEND Physician Assistant Medical
DX: C50.812 Malignant neoplasm of overlapping sites of left female breast (principal)
CPT/HCPCS: 77049; A9585

== ENCOUNTER 2019-10-08 08:25 | Day surgery (SDC) | payer MEDICARE ==
[~2019-10-08 08:25] MED LIST: CEFAZOLIN SODIUM IN 0.9 % NACL 2 GM/100 ML BAG IV ONE
[2019-10-08] MEDS ORDERED: LACTATED RINGERS 1,000 ML IV ONE (08:34)
[2019-10-08] MEDS ORDERED: BUFFERED LIDOCAINE 10 ML SYRINGE ONE (09:10)
--- NOTE | 2019-10-08 10:19 | ANESTHESIA ---
Pre-Anesthesia VS, & Labs - Diagnosis Left breast cancer - Procedure Left breast lumpectomy, sentinel node biospy Vital Signs: Temp Pulse Resp BP Pulse Ox 36.9 C 80 16 136/82 H 99 10/08/19 08:34 10/08/19 08:34 10/08/19 08:34 10/08/19 08:34 10/08/19 08:34 Height 5 ft 3 in Weight (kg) 57 kg Body Mass Index 22.8 - NPO >8 hours - Is Patient ?: Not Applicable - Lab Results Lab results reviewed: No Home Medications and Allergies Multivitamin [Multiple Vitamins] 1 each PO DAILY 06/09/19 Allergies/Adverse Reactions: Allergies Allergy/AdvReac Type Severity Reaction Status Date / Time No Known Drug Allergies Allergy Verified 06/09/19 00:54 Anes History & Medical History - Anesthetic History Anesthesia Complications: reports: No previous complications, Post-Operative Nausea/Vomiting Family history of Anesthesia Complications: Denies Family history of Malignant Hyperthermia: Denies - Medical History Cardiovascular: reports: None Pulmonary: reports: None Gastrointestinal: reports: Colon polyps, Hemorrhoids Urinary: reports: None Neuro: reports: None Musculoskeletal: reports: None Endocrine/Autoimmune: reports: None Blood Disorders: reports: None Skin: reports: None Smoking Status: Never smoker Psychosocial: reports: No issues indicated - Surgical History General: Other Eyes Ears Nose Throat (EENT): Cataracts, Tonsil/Adenoidectomy Exam General: Alert Dental: WNL Mouth Opening: Greater than 4 Fingerbreadths Neck Mobility: Normal Mallampati classification: I Thyromental Distance: greater than 6 cm Respiratory: Lungs clear Cardiovascular: Regular rate Neurological: Normal speech Mental/Cognitive Status: Alert/Oriented X3 Cognitive Status: Within normal limits Plan Anesthesia Type: General Consent for Procedure(s) Verified and Reviewed: Yes Code Status: Attempt Resuscitation ASA classification: 2-Mild systemic disease Is this case an emergency?: No
[2019-10-08] MEDS ORDERED: LIDOCAINE 1%-EPI 1:100000 20 ML MDV ONE (10:25)
[2019-10-08] MEDS ORDERED: BUPIVACAINE 0.5% PF 30 ML VIAL ONE (10:25)
[2019-10-08] MEDS ORDERED: LIDOCAINE-MPF 2% 5 ML VIAL IM ONE (11:59)
[2019-10-08] MEDS ORDERED: MIDAZOLAM 2 MG/2 ML VIAL IVP ONE (11:59)
[2019-10-08] MEDS ORDERED: fentaNYL 100 MCG/2 ML VIAL IVP ONE (11:59)
[2019-10-08] MEDS ORDERED: ONDANSETRON 4 MG/2 ML VIAL IVP ONE (11:59)
[2019-10-08] MEDS ORDERED: PROPOFOL 200 MG/20 ML VIAL IVP ONE (11:59)
[2019-10-08] MEDS ORDERED: HYDROmorphone 0.5 MG/0.5 ML SYRINGE ONE (12:58)
[2019-10-08] MEDS ORDERED: oxyCODONE 5 MG TABLET ONE (13:33)
[2019-10-08] MEDS ORDERED: ACETAMINOPHEN 325 MG TABLET PO PRN (13:45)
[2019-10-08] MEDS ORDERED: oxyCODONE 5 MG TABLET PO PRN (13:45)
[2019-10-08] MEDS ORDERED: IBUPROFEN 600 MG TABLET PO PRN (13:45)
[2019-10-08] MEDS ORDERED: ONDANSETRON 4 MG/2 ML VIAL IVP PRN (13:45)
[2019-10-08 16:01] VITALS: BP 126/68
--- NOTE | 2019-10-09 12:54 | OPERATIVE REPORT ---
Operative Report - General Planned Procedure: Left breast lumpectomy and sentinel node biopsy Pre-Op Diagnosis: Left breast cancer Procedure Performed: Left breast lumpectomy Post Op Diagnosis: Left breast cancer - Procedure Note Primary Surgeon: Noel Anesthesia Provider: SHAUNA Lombardo Anesthesia Technique: General LMA, Local, Regional block Pathology: Left breast marked for orientation and submitted to pathology in formalin Estimated Blood Loss (mL): 10 Indications: Biopsy proven left breast cancer Findings: Mass not fixed to the underlying muscle or fascia Complications: Lymphatic mapping procedure did not identify a sentinel node. Survey of the axilla with Neoprobe during the case did not identify a sentinel node in the axillary, supraclavicular, or internal mammary chains - Other Other Information/Narrative: After obtaining informed consent, the patient is brought to the operating room and placed in the supine position on the operating table. Following successful induction of general anesthesia, appropriate padding of all bony prominences, and placement of appropriate monitors, the left chest and axilla were prepped and draped in the standard surgical fashion. A timeout was held per scope protocol. All elements of the surgical safety checklist were followed before, during, and after the procedure. We began the procedure by using the neoprobe to try to identify a sentinel node. Several minutes were undertaken in scanning the patient's left axilla, supraclavicular region, and internal mammary region. A significant amount of uptake could not be identified and therefore the sentinel node procedure was aborted. We turned our attention to the lumpectomy. The palpable mass was noted at the 6 o'clock position in the left breast at the inframammary fold. An incision was fashioned using a surgical marking pen to include an ellipse of skin over the most abnormal portion of the tissue. An incision was then created here and carried through the skin and subcutaneous tissue. Dissection was carried out to include the entire mass sharply. The tissue around the known 2 cm lesion was soft and primarily fatty replaced. It was quite easy to lift the mass off of the underlying muscle and fascia. The mass was completely liberated from the surrounding tissue and marked for orientation. It was passed from the table as a specimen, placed in formalin, and submitted to pathology. The wound was checked for hemostasis and irrigated with warm water. It was aspirated free of all fluid and particulate matter. It was then closed in layers with Vicryl Monocryl suture. Dermabond was applied to the skin. All sponge, needle, and instrument counts were correct at the conclusion of the case. The patient was allowed awaken from anesthesia without difficulty and taken to the postanesthesia care unit in good condition.
== END 2019-10-08 08:26 | disposition home or self-care (01) ==
LOC: SDS 08:25
PROVIDERS: ATTEND Surgery
PROC: 0HBU0ZZ Excision of Left Breast, Open Approach (ICD-10-PCS; principal; 2019-10-08 10:45)
DX: C50.812 Malignant neoplasm of overlapping sites of left female breast (principal); Z17.0 Estrogen receptor positive status [ER+]
CPT/HCPCS: 19301; 78195; A9270; J0690; J1170; J7120

== ENCOUNTER 2019-10-08 09:46 | Day surgery (SDC) | payer MEDICARE ==
--- NOTE | 2019-10-08 12:43 | OPERATIVE REPORT ---
Operative Report - General Procedure Date: 10/08/19 Planned Procedure: Left breast lumpectomy and sentinel node biopsy Pre-Op Diagnosis: Left breast cancer Procedure Performed: Left breast lumpectomy Post Op Diagnosis: Left breast cancer - Procedure Note Primary Surgeon: Noel Anesthesia Provider: SHAUNA Lombardo Anesthesia Technique: General LMA, Local, Regional block Pathology: Left breast marked for orientation and submitted to pathology in formalin Estimated Blood Loss (mL): 10 Indications: Biopsy proven left breast cancer Findings: Mass not fixed to the underlying muscle or fascia Complications: Lymphatic mapping procedure did not identify a sentinel node. Survey of the axilla with Neoprobe during the case did not identify a sentinel node in the axillary, supraclavicular, or internal mammary chains - Other Other Information/Narrative: After obtaining informed consent, the patient is brought to the operating room and placed in the supine position on the operating table. Following successful induction of general anesthesia, appropriate padding of all bony prominences, and placement of appropriate monitors, the left chest and axilla were prepped and draped in the standard surgical fashion. A timeout was held per scope protocol. All elements of the surgical safety checklist were followed before, during, and after the procedure. We began the procedure by using the neoprobe to try to identify a sentinel node. Several minutes were undertaken in scanning the patient's left axilla, supraclavicular region, and internal mammary region. A significant amount of uptake could not be identified and therefore the sentinel node procedure was aborted. We turned our attention to the lumpectomy. The palpable mass was noted at the 6 o'clock position in the left breast at the inframammary fold. An incision was fashioned using a surgical marking pen to include an ellipse of skin over the most abnormal portion of the tissue. An incision was then created here and carried through the skin and subcutaneous tissue. Dissection was carried out to include the entire mass sharply. The tissue around the known 2 cm lesion was soft and primarily fatty replaced. It was quite easy to lift the mass off of the underlying muscle and fascia. The mass was completely liberated from the surrounding tissue and marked for orientation. It was passed from the table as a specimen, placed in formalin, and submitted to pathology. The wound was checked for hemostasis and irrigated with warm water. It was aspirated free of all fluid and particulate matter. It was then closed in layers with Vicryl Monocryl suture. Dermabond was applied to the skin. All sponge, needle, and instrument counts were correct at the conclusion of the case. The patient was allowed awaken from anesthesia without difficulty and taken to the postanesthesia care unit in good condition.
[2019-10-08] MEDS ORDERED: oxyCODONE 5 MG TABLET PO PRN (12:53)
[2019-10-08] MEDS ORDERED: ACETAMINOPHEN 325 MG TABLET PO PRN (12:53)
[2019-10-08] MEDS ORDERED: ONDANSETRON 4 MG/2 ML VIAL IVP PRN (12:53)
[2019-10-08] MEDS ORDERED: IBUPROFEN 600 MG TABLET PO PRN (12:53)
--- NOTE | 2019-10-08 16:27 | Nuclear Medicine Report ---
Reason: LT BREAST CA Procedure Date: 10/08/2019 Accession Number: [id number] / [id number] Procedure: NM - Lymph Node Scintigraphy CPT Code: Final Report FULL RESULT: EXAM: SENTINEL LYMPH NODE RADIOTRACER INJECTION WITH IMAGING EXAM DATE: 10/08/2019 11:45 AM. CLINICAL HISTORY: LT BREAST CA. COMPARISON: 07/24/2019 ultrasound-guided core biopsy. BREAST CORE 07/24/2019 11:10 AM. TECHNIQUE: The injection site of the left periareolar region was cleansed according to protocol. Next, a total of 0.44 mCi Tc-99m filtered sulfur colloid in 6 cc saline was injected into the same site. After appropriate delay, the patient was imaged according to the protocol. FINDINGS: Imaging was performed over 60 minutes. A sentinel lymph node is not identified. Imaging discontinued at Dr. Cohen's request. The patient tolerated the procedure well. IMPRESSION: 1. [place] lymph node injection left breast, without complication. A sentinel node is not identified. RADIA
== END 2019-10-08 09:47 | disposition home or self-care (01) ==
LOC: SDS 09:46
PROVIDERS: ATTEND Surgery
DX: C50.912 Malignant neoplasm of unspecified site of left female breast (principal)
CPT/HCPCS: 78195

== ENCOUNTER 2019-10-29 09:46 | Day surgery (SDC) | payer MEDICARE ==
[2019-10-29] MEDS ORDERED: LIDOCAINE-MPF 2% 5 ML VIAL IM ONE (09:47)
[2019-10-29] MEDS ORDERED: ACETAMINOPHEN 1,000 MG/100 ML 100 ML IV ONE (09:47)
[2019-10-29] MEDS ORDERED: PROPOFOL 200 MG/20 ML VIAL IVP ONE (09:47)
[2019-10-29] MEDS ORDERED: ONDANSETRON 4 MG/2 ML VIAL IVP ONE (09:47)
[2019-10-29] MEDS ORDERED: DEXAMETHASONE 4 MG/ML VIAL IVP ONE (09:47)
[2019-10-29] MEDS ORDERED: KETOROLAC 30 MG/ML VIAL IVP ONE (09:47)
[2019-10-29] MEDS ORDERED: fentaNYL 100 MCG/2 ML VIAL IVP ONE (09:47)
[2019-10-29] MEDS ORDERED: CEFAZOLIN SODIUM IN 0.9 % NACL 2 GM/100 ML BAG IV ONE (09:53)
[2019-10-29] MEDS ORDERED: LACTATED RINGERS 1,000 ML IV ONE (10:41)
[2019-10-29] MEDS ORDERED: LIDOCAINE 1%-EPI 1:100000 20 ML MDV ONE (11:09)
[2019-10-29] MEDS ORDERED: BUPIVACAINE 0.25% PF 30 ML VIAL ONE (11:09)
--- NOTE | 2019-10-29 12:01 | ANESTHESIA ---
Pre-Anesthesia VS, & Labs - Diagnosis Multifocal L breast CA - Procedure L re-excision of margins, breast lumpectomy Vital Signs: Temp Pulse Resp BP Pulse Ox 36.6 C 71 18 156/101 H 97 10/29/19 10:21 10/29/19 10:21 10/29/19 10:21 10/29/19 10:21 10/29/19 10:21 Height 5 ft 3 in Weight (kg) 56 kg Body Mass Index 22.8 - NPO >8 hours - Is Patient ?: No Home Medications and Allergies Multivitamin [Multiple Vitamins] 1 each PO DAILY 06/09/19 Allergies/Adverse Reactions: Allergies Allergy/AdvReac Type Severity Reaction Status Date / Time No Known Drug Allergies Allergy Verified 06/09/19 00:54 Anes History & Medical History - Anesthetic History Anesthesia Complications: reports: No previous complications Family history of Anesthesia Complications: Denies Family history of Malignant Hyperthermia: Denies - Medical History Cardiovascular: reports: None Pulmonary: reports: None Gastrointestinal: reports: Colon polyps, Hemorrhoids Urinary: reports: None Neuro: reports: None Musculoskeletal: reports: None Endocrine/Autoimmune: reports: None Blood Disorders: reports: None Skin: reports: None Smoking Status: Never smoker - Surgical History General: Other Eyes Ears Nose Throat (EENT): Cataracts, Tonsil/Adenoidectomy Exam General: Alert, Oriented x3, Cooperative Dental: WNL Mouth Openin Fingerbreadth Neck Mobility: Normal Mallampati classification: II Thyromental Distance: greater than 6 cm Respiratory: Lungs clear, Normal breath sounds, No respiratory distress Cardiovascular: Regular rate Neurological: Normal speech Mental/Cognitive Status: Alert/Oriented X3, Normal for patient Cognitive Status: Within normal limits Plan Anesthesia Type: General Consent for Procedure(s) Verified and Reviewed: Yes Code Status: Attempt Resuscitation ASA classification: 3-Severe systemic disease Is this case an emergency?: No
[2019-10-29] MEDS ORDERED: PHENYLEPHRINE 50 MG/5 ML VIAL IV ONE (12:06)
[2019-10-29] MEDS ORDERED: BUPIVACAINE 0.25% PF 30 ML VIAL SUBQ ONE ×2 (12:39)
[2019-10-29] MEDS ORDERED: LIDOCAINE 1%-EPI 1:100000 30 ML MDV SUBQ ONE ×2 (12:39)
--- NOTE | 2019-10-29 13:14 | OPERATIVE REPORT ---
Operative Report - General Procedure Date: 10/29/19 Planned Procedure: Left breast lumpectomy for re-excision of margins - proven malignancy Pre-Op Diagnosis: Left breast cancer Procedure Performed: Left breast lumpectomy for re-excision of margins - proven malignancy Post Op Diagnosis: Left breast cancer - Procedure Note Primary Surgeon: Noel Anesthesia Provider: SHAUNA Walter Pathology: Specimen marked with a short stitch superior and a long stitch lateral Estimated Blood Loss (mL): 5 Findings: No gross evidence of tumor Complications: None apparent - Other Other Information/Narrative: After obtaining informed consent, the patient is brought the operating room and placed in supine position on the operating table. Following successful induction of general endotracheal anesthesia, appropriate padding of all bony prominences, and placement of appropriate monitors, the left chest was prepped and draped in the standard surgical fashion. A timeout was held per scope protocol. All elements of the surgical safety checklist were followed before, during, and after the procedure. Following infiltration with local anesthetic to create a field block, the existing incision was completely excised and extended laterally. The entire prior biopsy cavity including the surrounding seroma cavity were removed in a single piece extending the incision laterally approximately 3 cm. This included a tiny amount of muscle adherent to the posterior surface of the prior excision cavity. The specimen was marked with a short stitch superior and a long stitch lateral and passed from the table. It was placed in formalin for submission to pathology. The wound was then checked for hemostasis and irrigated with warm water. It was aspirated free of all fluid and particulate matter. A single piece of Surgicel was then placed over the muscle to help prevent early adherence of the skin, specifically the dermis to the chest wall muscle. The incision was then closed in 2 layers with Vicryl and Monocryl suture and Dermabond was applied to the skin. All sponge, needle, and instrument counts were correct at the conclusion of the case. The patient was allowed to wake from anesthesia without difficulty and taken to the postanesthesia care unit in good condition.
[2019-10-29] MEDS ORDERED: oxyCODONE 5 MG TABLET PO PRN (13:17)
[2019-10-29] MEDS ORDERED: ONDANSETRON 4 MG/2 ML VIAL IVP PRN (13:17)
[2019-10-29] MEDS ORDERED: ACETAMINOPHEN 325 MG TABLET PO PRN (13:17)
[2019-10-29] MEDS ORDERED: IBUPROFEN 600 MG TABLET PO PRN (13:17)
[2019-10-29] MEDS ORDERED: oxyCODONE 5 MG TABLET ONE (14:08)
[2019-10-29 14:40] VITALS: BP 114/69
== END 2019-10-29 09:47 | disposition home or self-care (01) ==
LOC: SDS 09:46
PROVIDERS: ATTEND Surgery
PROC: 0HBU0ZZ Excision of Left Breast, Open Approach (ICD-10-PCS; principal; 2019-10-29 11:15)
DX: C50.912 Malignant neoplasm of unspecified site of left female breast (principal); Z17.0 Estrogen receptor positive status [ER+]
CPT/HCPCS: 19301; A9270; J0131; J0690; J7120

== ENCOUNTER 2020-05-02 15:02 | Outpatient (CLI) | payer MEDICARE ==
--- NOTE | 2020-05-03 06:27 | DEXA Report ---
PROCEDURE: Dexa Spine and/or Hip INDICATIONS: POST MENOPAUSAL TECHNIQUE: Dual energy x-ray absorptiometry (DXA) was performed on a [employer] System. Regions measur ed are the AP Spine, femoral neck, and if needed forearm. COMPARISON: None. FINDINGS: Lumbar Spine: Bone Mineral Density 0.812 g/cm/cm,T score -3.1, osteoporosis Left Hip: Bone Mineral Density 0.816 g/cm/cm,T score -1.5, osteopenia Left Femoral Neck: Bone Mineral Density 0.771 g/cm/cm, T score -1.9, osteopenia (T score greater or equal to -1.0: NORMAL) (T score from -1.1 to -2.4: OSTEOPENIA) (T score less than or equal to -2.5 to: OSTEOPOROSIS) Impression: Osteopenia within the left hip and femoral neck as above. Patients with diagnosis of osteoporosis or osteopenia should have regular bone mineral density assess ment. For those eligible for Medicare, routine testing is allowed once every 2 years. Testing frequ ency can be increased for patients who have rapidly progressing disease or for those who are receivin g medical therapy to restore bone mass. Reviewed by: Daisy Pedro MD on 05/02/2020 4:30 PM PDT Approved by: Daisy Pedro MD on 05/02/2020 4:30 PM PDT Station ID: [id number]
== END 2020-05-02 15:03 | disposition home or self-care (01) ==
LOC: DI 15:02
PROVIDERS: ATTEND Surgery
DX: M85.89 Other specified disorders of bone density and structure, multiple sites (principal); Z78.0 Asymptomatic menopausal state
CPT/HCPCS: 77080

== ENCOUNTER 2020-11-04 08:47 | Outpatient (CLI) | payer MEDICARE ==
--- NOTE | 2020-11-06 17:03 | Mammography Report ---
BILATERAL DIGITAL DIAGNOSTIC MAMMOGRAM 3D/2D: 11/04/2020 CLINICAL: Post left lumpectomy. Comparison is made to exams dated: 07/11/2019 ultrasound and 07/11/2019 mammogram - [facility]. The tissue of both breasts is predominantly fatty. There are benign post operative findings in the left breast. No significant masses, calcifications, or other findings are seen in either breast. There has been no significant interval change. IMPRESSION: BENIGN There is no mammographic evidence of malignancy. A 1 year screening mammogram is recommended. This exam was interpreted at Station ID: [id number]. NOTE: For mammograms, a report in lay terms will be sent to the patient. Approximately 15% of breast malignancies will not be visualized mammographically. In the management of a palpable breast mass, a negative mammogram must not discourage biopsy of a clinically suspicious lesion. Electronically Signed By: Jagdish Anderson acr/penrad:11/04/2020 09:27:45 ACR BI-RADS Category 2: Benign Finding(s) 3342F PARENCHYMAL PATTERN: (F) - The breast(s) demonstrate(s) diffuse fatty replacement. BI-RADS CATEGORY: (2) - 2 RECOMMENDATION: (ANNUAL) - Recommend routine annual screening mammography. [id number] 1 year screening LATERALITY: (B)
== END 2020-11-04 08:48 | disposition home or self-care (01) ==
LOC: DI 08:47
PROVIDERS: ATTEND Surgery
DX: Z08 Encounter for follow-up examination after completed treatment for malignant neoplasm (principal); Z85.3 Personal history of malignant neoplasm of breast
CPT/HCPCS: 77066; G0279

== ENCOUNTER 2021-08-18 08:41 | Outpatient (CLI) | payer MEDICARE ==
[2021-08-18 15:02] LABS: BASOPHILS # (AUTO) 0.1 10^3/uL (0.0-0.1); BASOPHILS % (AUTO) 1.5 %; EOSINOPHILS # (AUTO) 0.6 10^3/uL (0.0-0.7); EOSINOPHILS % (AUTO) 9.5 %; HCT - HEMATOCRIT 39.9 % (37.0-47.0); HGB - HEMOGLOBIN 12.9 g/dL (12.0-16.0); LYMPHOCYTES % (AUTO) 32.6 %; MEAN CORPUSCULAR HEMOGLOBIN 30.6 pg (27.0-31.0); MEAN CORPUSCULAR HGB CONC 32.3 g/dL (32.0-36.0); MEAN CORPUSCULAR VOLUME 94.8 fL (81.0-99.0); MEAN PLATELET VOLUME 10.5 fL (7.9-10.8); MONOCYTES # (AUTO) 0.5 10^3/uL (0.0-1.0); MONOCYTES % (AUTO) 8.2 %; NEUTROPHILS # (AUTO) 2.9 10^3/uL (1.5-6.6); NEUTROPHILS % (AUTO) 47.9 %; PLT - PLATELET COUNT 243 10^3/uL (130-450); RED BLOOD COUNT 4.21 10^6/uL (4.20-5.40); RED CELL DISTRIBUTION WIDTH 13.2 % (12.0-15.0)
[2021-08-18 15:39] LABS: THYROID STIMULATING HORMONE 3.38 uIU/mL (0.34-5.60)
[2021-08-18 16:32] LABS: ALBUMIN 3.7 g/dL (3.2-5.5); ALBUMIN/GLOBULIN RATIO 1.4 (1.0-2.2); ALKALINE PHOSPHATASE 65 IU/L (42-121); ALT ALANINE AMINOTRANSFERASE 19 IU/L (10-60); AST ASPARTATE AMINOTRANSFERASE 28 IU/L (10-42); BILIRUBIN,TOTAL 0.5 mg/dL (0.2-1.0); BUN - BLOOD UREA NITROGEN 13 mg/dL (6-20); CALCIUM 8.9 mg/dL (8.5-10.3); CARBON DIOXIDE - CO2 25 mmol/L (21-32); CHLORIDE 103 mmol/L (101-111); CHOL/HDL RATIO 4.5 (<4.4); CHOLESTEROL 269 mg/dL; CREATININE 0.7 mg/dL (0.4-1.0); GFR - MDRD 80 (>89); GLUCOSE 90 mg/dL (70-100); HDL CHOLESTEROL 60 mg/dL; LDL CHOLESTEROL,CALCULATED 174 mg/dL; LDL/HDL RATIO 2.9 (<4.4); POTASSIUM 3.9 mmol/L (3.5-5.0); SODIUM 137 mmol/L (135-145); TOTAL PROTEIN 6.4 g/dL (6.7-8.2); TRIGLYCERIDES 177 mg/dL; VLDL CHOLESTEROL 35 mg/dL
== END 2021-08-18 08:42 | disposition home or self-care (01) ==
LOC: LAB.S 08:41
PROVIDERS: ATTEND Registered Nurse
DX: E78.5 Hyperlipidemia, unspecified (principal); Z13.228 Encounter for screening for other metabolic disorders; Z13.29 Encounter for screening for other suspected endocrine disorder; Z13.0 Encounter for screening for diseases of the blood and blood-forming organs and certain disorders involving the immune mechanism
CPT/HCPCS: 36415; 80053; 80061; 83721; 84443; 85025

== ENCOUNTER 2022-07-27 09:45 | Outpatient (CLI) | payer MEDICARE ==
--- NOTE | 2022-07-28 16:25 | Mammography Report ---
BILATERAL DIGITAL SCREENING MAMMOGRAM 3D/2D: 07/27/2022 CLINICAL: Routine screening. Personal history of left breast cancer. Comparison is made to exams dated: 11/04/2020 mammogram and 07/11/2019 mammogram - [facility]. There are scattered areas of fibroglandular density in both breasts (category b / 25%-50% glandular t issue). There are benign post operative findings in the left breast. No significant masses, calcifications, or other findings are seen in either breast. There has been no significant interval change. IMPRESSION: BENIGN There is no mammographic evidence of malignancy. A 1 year screening mammogram is recommended. This exam was interpreted at Station ID: [id number]. NOTE: For mammograms, a report in lay terms will be sent to the patient. Approximately 15% of breast malignancies will not be visualized mammographically. In the management of a palpable breast mass, a negative mammogram must not discourage biopsy of a clinically suspicious lesion. Electronically Signed By: Kelly [email or web address]/[email or web address]:07/27/2022 17:27:01 ACR BI-RADS Category 2: Benign Finding(s) 3342F PARENCHYMAL PATTERN: (A) - The breast(s) demonstrate(s) scattered fibroglandular densities. BI-RADS CATEGORY: (2) - 2 RECOMMENDATION: (ANNUAL) - Recommend routine annual screening mammography. [id number] 1 year screening LATERALITY: (B)
== END 2022-07-27 09:46 | disposition home or self-care (01) ==
LOC: DI 09:45
PROVIDERS: ATTEND Surgery
DX: Z12.31 Encounter for screening mammogram for malignant neoplasm of breast (principal); Z85.3 Personal history of malignant neoplasm of breast

== ENCOUNTER 2023-07-11 09:55 | Outpatient (CLI) | payer MEDICARE ==
--- NOTE | 2023-07-11 17:38 | DEXA Report ---
PROCEDURE: Dexa Spine and/or Hip INDICATIONS: POST MENOPAUSAL TECHNIQUE: Dual energy x-ray absorptiometry (DXA) was performed on a Vastari System. Regions measur ed are the AP Spine, femoral neck, and if needed forearm. COMPARISON: 05/02/2020 FINDINGS: Lumbar Spine L1-L4: Bone Mineral Density 0.958 g/cm/cm,T score -1.9. Osteopenia Left Femoral Neck: Bone Mineral Density 0.748 g/cm/cm, T score -2.1. Left Hip: Bone Mineral Density 0.839 g/cm/cm,T score -1.3. Osteopenia (T score greater or equal to -1.0: NORMAL) (T score from -1.1 to -2.4: OSTEOPENIA) (T score less than or equal to -2.5 to: OSTEOPOROSIS) Impression: By WHO criteria, this patient has low bone density (osteopenia). No significant interval change in th e left hip. Increased density at L3-4 is likely due to increased sclerosis related to degenerative ch ney. Patients with diagnosis of osteoporosis or osteopenia should have regular bone mineral density assess ment. For those eligible for Medicare, routine testing is allowed once every 2 years. Testing frequ ency can be increased for patients who have rapidly progressing disease or for those who are receivin g medical therapy to restore bone mass. Reviewed by: Jagdish Anderson on 07/11/2023 5:37 PM PDT Approved by: Jagdish Anderson on 07/11/2023 5:37 PM PDT Station ID: [id number]
== END 2023-07-11 09:56 | disposition home or self-care (01) ==
LOC: DI 09:55
PROVIDERS: ATTEND Registered Nurse
DX: Z78.0 Asymptomatic menopausal state (principal); M85.89 Other specified disorders of bone density and structure, multiple sites

== ENCOUNTER 2023-08-29 10:14 | Outpatient (CLI) | payer MEDICARE ==
--- NOTE | 2023-08-30 09:53 | Mammography Report ---
BILATERAL DIGITAL DIAGNOSTIC MAMMOGRAM 3D/2D: 08/29/2023 CLINICAL: Oncology requested follow up of left breast cancer. Due for bilateral. Comparison is made to exams dated: 07/27/2022 mammogram and 11/04/2020 mammogram - [facility]. There are scattered areas of fibroglandular density in both breasts (category b / 25%-50% glandular t issue). There are benign post operative findings in the left breast. No significant masses, calcifications, or other findings are seen in either breast. There has been no significant interval change. IMPRESSION: BENIGN There is no mammographic evidence of malignancy. A 1 year screening mammogram is recommended. This exam was interpreted at Station ID: [id number]. NOTE: For mammograms, a report in lay terms will be sent to the patient. Approximately 15% of breast malignancies will not be visualized mammographically. In the management of a palpable breast mass, a negative mammogram must not discourage biopsy of a clinically suspicious lesion. Electronically Signed By: Bart [email or web address]:08/29/2023 11:03:12 letter sent: No_Letter ACR BI-RADS Category 2: Benign Finding(s) 3342F PARENCHYMAL PATTERN: (A) - The breast(s) demonstrate(s) scattered fibroglandular densities. BI-RADS CATEGORY: (2) - 2 Mammogram [id number] 1 year screening LATERALITY: (B)
== END 2023-08-29 10:15 | disposition home or self-care (01) ==
LOC: DI 10:14
PROVIDERS: ATTEND Internal Medicine Hematology & Oncology
DX: Z08 Encounter for follow-up examination after completed treatment for malignant neoplasm (principal); Z85.3 Personal history of malignant neoplasm of breast; R92.323 Mammographic fibroglandular density, bilateral breasts

== ENCOUNTER 2023-12-31 12:44 | Emergency (ER) | payer MEDICARE ==
[2023-12-31 13:02] VITALS: O2SAT 98
--- NOTE | 2023-12-31 13:16 | ED Physician Documentation ---
PD HPI SYNCOPE - Stated complaint Stated Complaint: GLF/LAC - Chief complaint Chief Complaint: Trauma Hd/Nk - History obtained from History obtained from: Patient - History of Present Illness Witnessed: Unwitnessed Timing - onset: Today (she had been feeling okay with usual activity. Was out in yard directiong a self-propelled mower. [place] weak and lightead while sitting. No MUÑOZ, CP, palitations. Improved after minute, and then occured again. Rested and improving, but then felt lightheaded gain and awoke on ground with glasses bent.) Duration: Unknown (but believes it is just seconds.) Preceding symptoms: Light headed. No: Headache, Palpitations, Dyspnea, Generalized weakness Contributing factors: No: Recent med change, Decreased PO intake, Just stood up (was stting outside directing a self-propelled manager project.) Injury occurred: Head injury. No: Neck injury Review of Systems Constitutional: reports: Fatigue. denies: Fever, Chills Nose: denies: Rhinorrhea / runny nose, Congestion Throat: denies: Sore throat Cardiac: denies: Chest pain / pressure, Palpitations, Pedal edema, Calf pain Respiratory: denies: Cough GI: denies: Nausea, Vomiting, Diarrhea PD PAST MEDICAL HISTORY - Past Medical History Cardiovascular: None Respiratory: None Neuro: None Endocrine/Autoimmune: None GI: Colon polyps, Hemorrhoids SUPERMARKET MANAGER: None : None HEENT: Chronic vision loss Psych: None Musculoskeletal: None Derm: None - Past Surgical History Past Surgical History: Yes General: Other HEENT: Cataracts, Tonsil/Adenoidectomy - Present Medications Home Medications: Ambulatory Orders Medication Instructions Recorded Confirmed No Known Home Medications 12/31/23 12/31/23 - Allergies Allergies/Adverse Reactions: Allergies Allergy/AdvReac Type Severity Reaction Status Date / Time No Known Drug Allergies Allergy Verified 12/31/23 13:13 - Social History Does the pt smoke?: No Smoking Status: Never smoker Does the pt drink ETOH?: No Does the pt have substance abuse?: No - Immunizations Immunizations are current?: Yes - POLST Patient has POLST: No PD ED PE NORMAL - Vitals Vital signs reviewed: Yes - General General: Alert and oriented X 3, No acute distress, Well developed/nourished - HEENT HEENT: PERRL, EOMI, Other (left lateral periorbital area (lateral to eyebrow) with 1.5 cm lac just full thickness without FB nor bleeding. 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 Relevant findings are: Rate: Rate (enter#) (72) Rhythm: NSR [place]: Normal Intervals: Normal AR QRS: Normal Ischemia: Normal ST segments. No: ST elevation c/w ischemia, ST depression - Labs Labs: Laboratory Tests 12/31/23 12/31/23 12/31/23 13:15 13:15 13:15 WBC 10.0 RBC 4.53 Hgb 13.9 Hct 42.8 MCV 94.5 MCH 30.7 MCHC 32.5 RDW 13.3 Plt Count 264 MPV 9.4 Neut # (Auto) 7.6 H Lymph # (Auto) 1.5 [place] # (Auto) 0.6 Eos # (Auto) 0.2 Baso # (Auto) 0.1 Absolute Nucleated RBC 0.00 Nucleated RBC % 0.0 Sodium 136 Potassium 4.0 Chloride 104 Carbon Dioxide 25 Anion Gap 7.0 BUN 16 Creatinine 1.0 Estimated GFR (MDRD) 53 L Glucose 123 H Calcium 9.3 Magnesium 1.8 Total Bilirubin 0.4 AST 28 ALT 17 Alkaline Phosphatase 86 Troponin I High Sens 8.9 Total Protein 6.6 Albumin 3.9 Globulin 2.7 Albumin/Globulin Ratio 1.4 Lipase 22 Procedures - Laceration (location) left periorbital area Length in cm: 1.5 Wound type: Curved, Into subcut fat, Clean Neurovascular status: Sensory intact, Motor intact Wound preparation: Wound explored, To the base Skin layer closure: Dermabond, Steri strips Other: No complications, Neurovascular intact PD Medical Decision Making - ED course Complexity details: re-evaluated patient (vitals, monitor/heart rhythm have been okay. No symptoms here. Given IV fluids in case of underhydration. Unclear cause of her period of lightheaded/ near then true syncopes. ), considered differential (near syncope then syncope while mild activity. No change meds, recent illness, new meds. APpears well now. ), d/w patient Departure - Departure Disposition: 01 Home, Self Care Clinical Impression: Laceration of periorbital area, Syncopal episodes Condition: Stable Record reviewed to determine appropriate education?: Yes Instructions: ED Fainting Unkn Cause Comments: It is unclear the cause of your lightheadedness and fainting. Your heart rhythm is good and your blood pressure is normal here. You did describe it being more elevated earlier so it could have been just the dropping to normal range led to some lightheadedness. Your blood tests including blood count and electrolytes, blood sugar, kidney function are normal. We did a blood test called troponin to look for signs of heart injury and that was normal. Your EKG and chest x-ray are normal as well and your heart rhythm was normal here in the ER during your stay. Be sure to stay well-hydrated. Follow-up with your primary care if you have a repeat pattern of lightheadedness episodes and in particular with any exertional activity. If you have recurring episodes of lightheadedness, your provider may want to have you wear a heart monitor that records your heart rhythm continually for several days to week. If you have fainting episodes again, then follow-up or return to the ER for more testing perhaps. See how you feel otherwise over the next few days if other symptoms develop that might explain such as fevers or cough or nausea or any other illness type symptoms. For the laceration on your eyebrow area, allow the Steri-Strips to stay clean and dry for the next several days or more to allow them to stay on better. They should fall off on their own after 4 to 5 days or so and at that point regular wound care would be good. Recheck if signs of infection. Forms: PCP List Discharge Date/Time: 12/31/23 15:21
[2023-12-31 13:18] LABS: BASOPHILS # (AUTO) 0.1 10^3/uL (0.0-0.1); BASOPHILS % (AUTO) 0.8 %; EOSINOPHILS # (AUTO) 0.2 10^3/uL (0.0-0.7); EOSINOPHILS % (AUTO) 1.7 %; HCT - HEMATOCRIT 42.8 % (37.0-47.0); HGB - HEMOGLOBIN 13.9 g/dL (12.0-16.0); LYMPHOCYTES # (AUTO) 1.5 10^3/uL (1.5-3.5); MEAN CORPUSCULAR HEMOGLOBIN 30.7 pg (27.0-31.0); MEAN CORPUSCULAR HGB CONC 32.5 g/dL (32.0-36.0); MEAN CORPUSCULAR VOLUME 94.5 fL (81.0-99.0); MEAN PLATELET VOLUME 9.4 fL (7.9-10.8); MONOCYTES # (AUTO) 0.6 10^3/uL (0.0-1.0); MONOCYTES % (AUTO) 5.7 %; NEUTROPHILS # (AUTO) 7.6 10^3/uL (1.5-6.6); NEUTROPHILS % (AUTO) 76.3 %; PLT - PLATELET COUNT 264 10^3/uL (130-450); RED BLOOD COUNT 4.53 10^6/uL (4.20-5.40); RED CELL DISTRIBUTION WIDTH 13.3 % (12.0-15.0)
[2023-12-31 13:34] LABS: ALBUMIN 3.9 g/dL (3.2-5.5); ALBUMIN/GLOBULIN RATIO 1.4 (1.0-2.2); BILIRUBIN,TOTAL 0.4 mg/dL (0.2-1.0); CALCIUM 9.3 mg/dL (8.5-10.3); TOTAL PROTEIN 6.6 g/dL (6.4-8.9)
[2023-12-31] MEDS: SODIUM CHLORIDE 0.9% 1,000 ML IV STA (13:58)
[2023-12-31] MEDS: KETOROLAC 15 MG/ML VIAL IVP STA (14:21)
[2023-12-31 14:25] LABS: TROPONIN I HIGH SENSITIVITY 8.9 ng/L (2.3-14.8)
[2023-12-31 15:30] VITALS: BP 133/62
== END 2023-12-31 15:21 | disposition home or self-care (01) ==
LOC: ED 12:44
DX: S01.112A Laceration without foreign body of left eyelid and periocular area, initial encounter (principal); W18.30XA Fall on same level, unspecified, initial encounter; R55 Syncope and collapse
CPT/HCPCS: 12001; 36415; 80053; 83690; 83735; 84484; 85025; 93005; 99283

== ENCOUNTER 2024-05-29 09:00 | Outpatient (CLI) | payer MEDICARE ==
[2024-05-29 09:10] LABS: BASOPHILS # (AUTO) 0.1 10^3/uL (0.0-0.1); BASOPHILS % (AUTO) 1.4 %; EOSINOPHILS # (AUTO) 0.5 10^3/uL (0.0-0.7); HCT - HEMATOCRIT 39.9 % (37.0-47.0); LYMPHOCYTES # (AUTO) 1.9 10^3/uL (1.5-3.5); LYMPHOCYTES % (AUTO) 32.7 %; MEAN CORPUSCULAR HEMOGLOBIN 30.5 pg (27.0-31.0); MEAN CORPUSCULAR HGB CONC 32.6 g/dL (32.0-36.0); MEAN CORPUSCULAR VOLUME 93.7 fL (81.0-99.0); MEAN PLATELET VOLUME 9.3 fL (7.9-10.8); MONOCYTES # (AUTO) 0.5 10^3/uL (0.0-1.0); NEUTROPHILS # (AUTO) 2.9 10^3/uL (1.5-6.6); NEUTROPHILS % (AUTO) 48.6 %; PLT - PLATELET COUNT 265 10^3/uL (130-450); RED BLOOD COUNT 4.26 10^6/uL (4.20-5.40); WHITE BLOOD COUNT 5.9 x10^3/uL (4.8-10.8)
[2024-05-29 09:30] LABS: ALBUMIN 3.9 g/dL (3.2-5.5); ALBUMIN/GLOBULIN RATIO 1.6 (1.0-2.2); ALKALINE PHOSPHATASE 74 IU/L (42-121); ALT ALANINE AMINOTRANSFERASE 16 IU/L (10-60); AST ASPARTATE AMINOTRANSFERASE 27 IU/L (10-42); BILIRUBIN,TOTAL 0.6 mg/dL (0.2-1.0); BUN - BLOOD UREA NITROGEN 8 mg/dL (6-20); CALCIUM 9.1 mg/dL (8.5-10.3); CARBON DIOXIDE - CO2 28 mmol/L (21-32); CHLORIDE 104 mmol/L (101-111); CHOL/HDL RATIO 4.7 (<4.4); CHOLESTEROL 260 mg/dL; CREATININE 0.6 mg/dL (0.6-1.3); GFR - MDRD 95 (>89); GLUCOSE 92 mg/dL (74-104); HDL CHOLESTEROL 55 mg/dL; LDL CHOLESTEROL,CALCULATED 158 mg/dL; LDL/HDL RATIO 2.9 (<4.4); POTASSIUM 4.3 mmol/L (3.5-4.5); SODIUM 137 mmol/L (135-145); TOTAL PROTEIN 6.4 g/dL (6.4-8.9); TRIGLYCERIDES 236 mg/dL; VLDL CHOLESTEROL 47 mg/dL
[2024-05-29 09:41] LABS: THYROID STIMULATING HORMONE 3.73 uIU/mL (0.34-5.60)
== END 2024-05-29 09:01 | disposition home or self-care (01) ==
LOC: LAB 09:00
PROVIDERS: ATTEND Registered Nurse
DX: Z13.228 Encounter for screening for other metabolic disorders (principal); Z13.220 Encounter for screening for lipoid disorders; Z13.29 Encounter for screening for other suspected endocrine disorder; Z13.0 Encounter for screening for diseases of the blood and blood-forming organs and certain disorders involving the immune mechanism
CPT/HCPCS: 36415; 80053; 80061; 83721; 84443; 85025